=== PATIENT | female | born 1950 | race Caucasian/White ===

== ENCOUNTER 2016-12-26 09:35 | Emergency (ER) | payer OTHER ==
[2016-12-26 09:43] VITALS: RESP 18
[2016-12-26] MEDS ORDERED: NS 1,000 ML IV ONE (09:54)
--- NOTE | 2016-12-26 09:56 | EDPHY ---
H & P Stated Complaint: cough, sob, fatigue, h/a, bilat ear pain x 1 week HPI/ROS: Chief complaint: Cold symptoms History of present illness: This is a 66-year-old female who presents to the emergency department for cold symptoms. She reports she has been sick for the last week. She reports symptoms initially began with a sore throat which has resolved. She now reports intermittent fevers, ear fullness and primarily chest congestion and cough. She states she started to feel weak. She denies precipitating factors. She denies alleviating factors. She denies other associated signs or symptoms. Review of systems: A 10 point review of systems was obtained and other than described above was negative - Personal History Current Tetanus/Diphtheria Vaccine: Unsure Current Tetanus Diphtheria and Acellular Pertussis (TDAP): Unsure - Medical/Surgical History Hx Asthma: No Hx Chronic Respiratory Disease: No Hx Diabetes: No Hx Cardiac Disease: No Hx Renal Disease: No Hx Cirrhosis: No Hx Alcoholism: No Hx HIV/AIDS: No Hx Splenectomy or Spleen Trauma: No Other PMH: hypothyroid - Social History Smoking Status: Never smoked - Physical Exam Exam: General Appearance: Alert, nontoxic. Eyes: Pupils equal and round no pallor or injection. ENT, Mouth: Tympanic membranes, external auditory canals, external ears and surrounding soft tissue including over the mastoids are unremarkable. Nasopharynx is not injected. There is no rhinorrhea. Oropharynx is not injected. There is no edema. There is no exudate. There is no asymmetry. The uvula is midline. No elevation of the tongue. There is no hoarseness, no drooling, no trismus, no stridor. Respiratory: Patient is talking in full sentences. No use of accessary muscles or evidence of respiratory distress. Some rales and rhonchi in the right lower lung field. Otherwise clear to auscultation. Cardiovascular: Regular rate and rhythm. Gastrointestinal: Abdomen is soft and nontender, no masses, bowel sounds normal. Neurological: Alert and oriented x4. No meningismus. Skin: Warm and dry, no rashes. Musculoskeletal: Neck is supple nontender. Extremities are symmetrical, full range of motion. Psychiatric: Patient is oriented X 3, there is no agitation. Constitutional: Initial Vital Signs Temperature (C) 36.6 C 12/26/16 09:40 Heart Rate 92 12/26/16 09:40 Respiratory Rate 18 12/26/16 09:40 Blood Pressure 129/103 H 12/26/16 09:40 O2 Sat (%) 90 L 12/26/16 09:40 O2 Delivery Mode Room Air Allergies/Adverse Reactions: codeine Allergy (Verified 12/26/16 09:38) morphine Allergy (Verified 12/26/16 09:39) tramadol Allergy (Verified 12/26/16 09:39) Home Medications: Medication Instructions Recorded Doxycycline Hyclate [Vibramycin 100 mg PO BID 10 Days 12/26/16 100 MG (*)] Synthroid 12/26/16 Medical Decision Making - Diagnostics Imaging: Chest x-ray consistent with right lower lobe pneumonia ED Course/Re-evaluation: Patient discussed with my primary supervising physician Dr. Angie Mishra. Patient presents to the emergency department for persistent cold symptoms. Ultimately she appears to be suffering from a right lower lobe pneumonia. Her vital signs are stable. However she is unwell appearing. I have offered her admission to the hospital, she has declined. She is discharged home after being started on doxycycline in the emergency department. Home care is discussed. She is asked to follow up with a primary care doctor on Wednesday for recheck and referral information is provided. Strict return precautions are given. Patient voiced understanding and agreement with plan. Differential Diagnosis: Included but not limited to pneumonia, bronchitis, influenza, empyema - Data Points Laboratory Results: Laboratory Results 12/26/16 10:05 12/26/16 10:05 12/26/16 12/26/16 12/26/16 10:10 10:05 10:05 WBC 13.22 10^3/uL H 10^3/uL (3.80-9.50) RBC 5.00 10^6/uL 10^6/uL (4.18-5.33) Hgb 15.1 g/dL g/dL (12.6-16.3) Hct 42.2 % % (38.0-47.0) MCV 84.4 fL fL (81.5-99.8) MCH 30.2 pg pg (27.9-34.1) MCHC 35.8 g/dL g/dL (32.4-36.7) RDW 13.0 % % (11.5-15.2) Plt Count 334 10^3/uL 10^3/uL (150-400) MPV 10.2 fL fL (8.7-11.7) Neut % (Auto) 79.1 % H % (39.3-74.2) Lymph % (Auto) 8.5 % L % (15.0-45.0) [place] % (Auto) 11.6 % % (4.5-13.0) Eos % (Auto) 0.1 % L % (0.6-7.6) Baso % (Auto) 0.2 % L % (0.3-1.7) Nucleat RBC Rel Count 0.0 % % (0.0-0.2) Absolute Neuts (auto) 10.45 10^3/uL H 10^3/uL (1.70-6.50) Absolute Lymphs (auto) 1.12 10^3/uL 10^3/uL (1.00-3.00) Absolute Monos (auto) 1.54 10^3/uL H 10^3/uL (0.30-0.80) Absolute Eos (auto) 0.01 10^3/uL L 10^3/uL (0.03-0.40) Absolute Basos (auto) 0.03 10^3/uL 10^3/uL (0.02-0.10) Absolute Nucleated RBC 0.00 10^3/uL 10^3/uL (0-0.01) Immature Gran % 0.5 % % (0.0-1.1) Immature Gran # 0.07 10^3/uL 10^3/uL (0.00-0.10) Sodium 134 mEq/L mEq/L (134-144) Potassium 3.8 mEq/L mEq/L (3.5-5.2) Chloride 99 mEq/L mEq/L (97-110) Carbon Dioxide 22 mEq/l mEq/l (22-31) Anion Gap 13 mEq/L mEq/L (8-16) BUN 13 mg/dL mg/dL (7-23) Creatinine 0.5 mg/dL L mg/dL (0.6-1.0) Estimated GFR > 60 Glucose 114 mg/dL H mg/dL (70-100) Calcium 9.0 mg/dL mg/dL (8.5-10.4) Influenza Typ A,B (DFA) NEGATIVE FOR FLU (NEGATIVE) Medications Given: Discontinued Medications Sodium Chloride (Ns) 1,000 mls @ 0 mls/hr IV ONCE ONE PRN Reason: Wide Open Stop: 12/26/16 09:55 Last Admin: 12/26/16 10:00 Dose: 1,000 mls Departure - Departure Disposition: Home, Routine, Self-Care Clinical Impression: Pneumonia Qualifiers: Pneumonia type: due to unspecified organism Laterality: right Lung location: lower lobe of lung Qualified Code(s): J18.1 - Lobar pneumonia, unspecified organism Condition: Good Instructions: Pneumonia (ED) Additional Instructions: Follow-up with the primary care doctor on Wednesday for recheck Take all antibiotics as prescribed until finished even feeling better You can take probiotics with the antibiotics You were offered admission to the hospital today, you declined If symptoms worsen or new symptoms develop return to the emergency department for recheck Referrals: Arya Garcia MD [Medical Doctor] - As per Instructions Prescriptions: Doxycycline Hyclate [Vibramycin 100 MG (*)] 100 mg PO BID 10 Days
[2016-12-26 10:13] LABS: % IMMATURE GRANULYOCYTES 0.5 % (0.0-1.1); ABSOLUTE IMMATURE GRANULOCYTES 0.07 10^3/uL (0.00-0.10); ADD DIFF? NO; ADD MORPH? NO; ADD SCAN? NO; ATYPICAL LYMPHOCYTE FLAG 20 (0-99); FRAGMENT RBC FLAG 0 (0-99); HEMATOCRIT 42.2 % (38.0-47.0); HEMOGLOBIN 15.1 g/dL (12.6-16.3); LEFT SHIFT FLG 0 (0-99); LIPEMIA HEMOLYSIS FLAG 90 (0-99); MEAN CELL HEMOGLOBIN 30.2 pg (27.9-34.1); MEAN CELL HEMOGLOBIN CONCENTR. 35.8 g/dL (32.4-36.7); MEAN CELL VOLUME 84.4 fL (81.5-99.8); MEAN PLATELET VOLUME 10.2 fL (8.7-11.7); PLATELET CLUMPS FLAG 0 (0-99); PLATELET COUNT 334 10^3/uL (150-400)
[2016-12-26 10:26] LABS: ANION GAP 13 mEq/L (8-16); CARBON DIOXIDE 22 mEq/l (22-31); CHLORIDE 99 mEq/L (97-110); CREATININE 0.5 mg/dL (0.6-1.0); GLOMERULAR FILTRATION RATE > 60; GLUCOSE 114 mg/dL (70-100); POTASSIUM 3.8 mEq/L (3.5-5.2); SODIUM 134 mEq/L (134-144)
[2016-12-26] MEDS ORDERED: DOXYCYCLINE HYCLATE 100 MG CAP/TAB PO ONE (10:59)
[2016-12-26 11:25] VITALS: BP 138/75; PULSE 85; TEMP 98.6; O2SAT 96
== END 2016-12-26 11:19 | disposition home or self-care (01) ==
DX: J18.1 Lobar pneumonia, unspecified organism (principal)

== ENCOUNTER 2016-12-27 08:30 | Observation (INO) | payer OTHER ==
[2016-12-27] MEDS ORDERED: NS 1,000 ML IV ONE ×2 (08:53→09:16)
--- NOTE | 2016-12-27 08:58 | EDPHY ---
H & P Time Seen by Provider: 12/27/16 08:54 HPI/ROS: CHIEF COMPLAINT: Vomiting HISTORY OF PRESENT ILLNESS: Patient was in the emergency department yesterday and diagnosed with pneumonia and was placed on oral doxycycline. At the time she presented with a week of coughing and aching. Her x-ray showed right lower lung consolidation. She vomited after the 1st dose and after the 3rd dose of oral antibiotic and continues to have nausea. Symptoms associated with diarrhea which this morning was bloody with mucus. She still has associated chills but does not have abdominal pain. She feels a little bit stronger but still feels very weak. Still little bit short of breath. REVIEW OF SYSTEMS: Eye: no change in vision ENT: no sore throat, does have right upper posterior molar soreness a tooth problem which she has had for couple weeks Cardiac: no chest pain or syncope Pulmonary: HPI Abdomen: HPI Musculoskeletal: no back pain Skin: no rash Neuro: no headache Constitutional: Does continue to have chills : no urinary symptoms A comprehensive 10 point review of systems is otherwise negative aside from elements mentioned in the history of present illness. PAST MEDICAL HISTORY: Includes hypothyroid, hysterectomy, thyroidectomy. Social history: Nonsmoker General Appearance: Alert and conversant, cooperative. Eyes: No scleral icterus. ENT, Mouth: Slightly dry mucous membranes, no trismus Respiratory: Normal respiratory effort, decreased breath sounds at the bases especially at the right. Cardiovascular: Regular rate and rhythm. Gastrointestinal: Abdomen is soft and non tender. Neurological: Alert and oriented x3. Normally conversant. Face symmetric, normal movement and sensation in all extremities. Skin: Warm and dry, no rashes. Musculoskeletal: No peripheral edema and no joint swelling. Psychiatric: Not agitated. Emergency Department course/MDM: Patient presents with failure of outpatient treatment of her pneumonia with nausea and vomiting. Plan for admission to the hospital for IV antibiotics. She does not have SIRS criteria on arrival. Ceftriaxone 1 g and azithromycin 500 mg IV. Will test stool for Clostridium difficile. Smoking Status: Never smoked Constitutional: Initial Vital Signs Temperature (C) 36.6 C 12/27/16 08:32 Heart Rate 80 12/27/16 08:32 Respiratory Rate 14 12/27/16 08:32 Blood Pressure 148/92 H 12/27/16 08:32 O2 Sat (%) 92 12/27/16 08:32 O2 Delivery Mode Room Air Allergies/Adverse Reactions: codeine Allergy (Verified 12/26/16 09:38) morphine Allergy (Verified 12/26/16 09:39) tramadol Allergy (Verified 12/26/16 09:39) Home Medications: Medication Instructions Recorded Levothyroxine [Synthroid 75 mcg 75 mcg PO DAILY06 12/26/16 (*)] Ibuprofen [Motrin (*)] 400 mg PO DAILY PRN 12/27/16 Medical Decision Making - Diagnostics Imaging: Chest x-ray interpreted by myself shows right lower lung infiltrate. Differential Diagnosis: Differential diagnosis considered for nausea and vomiting including but not limited to gastroenteritis, gastritis, appendicitis, and medication side effect. Consult/Admit Bed Type: [place] [id number] for Candido Darren - Data Points Laboratory Results: Laboratory Results 12/27/16 08:40 12/27/16 08:40 12/27/16 12/27/16 12/27/16 08:50 08:40 08:40 WBC 11.54 10^3/uL H 10^3/uL (3.80-9.50) RBC 4.92 10^6/uL 10^6/uL (4.18-5.33) Hgb 14.9 g/dL g/dL (12.6-16.3) Hct 42.4 % % (38.0-47.0) MCV 86.2 fL fL (81.5-99.8) MCH 30.3 pg pg (27.9-34.1) MCHC 35.1 g/dL g/dL (32.4-36.7) RDW 13.1 % % (11.5-15.2) Plt Count 406 10^3/uL H D 10^3/uL (150-400) MPV 10.2 fL fL (8.7-11.7) Neut % (Auto) 83.1 % H % (39.3-74.2) Lymph % (Auto) 7.0 % L % (15.0-45.0) [place] % (Auto) 8.7 % % (4.5-13.0) Eos % (Auto) 0.1 % L % (0.6-7.6) Baso % (Auto) 0.3 % % (0.3-1.7) Nucleat RBC Rel Count 0.0 % % (0.0-0.2) Absolute Neuts (auto) 9.59 10^3/uL H 10^3/uL (1.70-6.50) Absolute Lymphs (auto) 0.81 10^3/uL L 10^3/uL (1.00-3.00) Absolute Monos (auto) 1.00 10^3/uL H 10^3/uL (0.30-0.80) Absolute Eos (auto) 0.01 10^3/uL L 10^3/uL (0.03-0.40) Absolute Basos (auto) 0.04 10^3/uL 10^3/uL (0.02-0.10) Absolute Nucleated RBC 0.00 10^3/uL 10^3/uL (0-0.01) Immature Gran % 0.8 % % (0.0-1.1) Immature Gran # 0.09 10^3/uL 10^3/uL (0.00-0.10) PT 14.6 SEC SEC (12.0-15.0) INR 1.15 (0.83-1.16) APTT 29.4 SEC SEC (23.0-38.0) VBG Lactic Acid Sodium 139 mEq/L mEq/L (134-144) Potassium 3.8 mEq/L mEq/L (3.5-5.2) Chloride 102 mEq/L mEq/L (97-110) Carbon Dioxide 26 mEq/l mEq/l (22-31) Anion Gap 11 mEq/L mEq/L (8-16) BUN 13 mg/dL mg/dL (7-23) Creatinine 0.5 mg/dL L mg/dL (0.6-1.0) Estimated GFR > 60 Glucose 123 mg/dL H mg/dL (70-100) Calcium 9.4 mg/dL mg/dL (8.5-10.4) Total Bilirubin 1.0 mg/dL mg/dL (0.1-1.4) 12/27/16 08:40 WBC RBC Hgb Hct MCV MCH MCHC RDW Plt Count MPV Neut % (Auto) Lymph % (Auto) [place] % (Auto) Eos % (Auto) Baso % (Auto) Nucleat RBC Rel Count Absolute Neuts (auto) Absolute Lymphs (auto) Absolute Monos (auto) Absolute Eos (auto) Absolute Basos (auto) Absolute Nucleated RBC Immature Gran % Immature Gran # PT INR APTT VBG Lactic Acid 1.7 mmol/L mmol/L (0.7-2.1) Sodium Potassium Chloride Carbon Dioxide Anion Gap BUN Creatinine Estimated GFR Glucose Calcium Total Bilirubin Medications Given: Discontinued Medications Sodium Chloride (Ns) 1,000 mls @ 0 mls/hr IV ONCE ONE PRN Reason: Wide Open Stop: 12/27/16 08:54 Last Admin: 12/27/16 08:54 Dose: 1,000 mls Azithromycin 500 mg/ Dextrose 255 mls @ 255 mls/hr IV EDNOW ONE PRN Reason: Protocol Stop: 12/27/16 10:15 Last Admin: 12/27/16 10:28 Dose: 255 mls Ceftriaxone Sodium/Dextrose (Rocephin 1 Gm (Premix)) 50 mls @ 100 mls/hr IV EDNOW ONE PRN Reason: Protocol Stop: 12/27/16 09:45 Last Admin: 12/27/16 09:35 Dose: 50 mls Sodium Chloride (Ns) 1,000 mls @ 0 mls/hr IV ONCE ONE PRN Reason: Wide Open Stop: 12/27/16 09:17 Last Admin: 12/27/16 09:42 Dose: 1,000 mls Departure - Departure Disposition: [facility] Inpatient Acute Clinical Impression: Nausea & vomiting Qualifiers: Vomiting type: unspecified Vomiting Intractability: non-intractable Qualified Code(s): R11.2 - Nausea with vomiting, unspecified Pneumonia Qualifiers: Pneumonia type: due to unspecified organism Laterality: right Lung location: lower lobe of lung Qualified Code(s): J18.1 - Lobar pneumonia, unspecified organism Condition: Good
[2016-12-27] MEDS ORDERED: AZITHROMYCIN IV 500 MG in D5W 250 ML IV ONE (09:16)
[2016-12-27 09:23] LABS: % IMMATURE GRANULYOCYTES 0.8 % (0.0-1.1); ABSOLUTE IMMATURE GRANULOCYTES 0.09 10^3/uL (0.00-0.10); ADD DIFF? NO; ADD MORPH? NO; ADD SCAN? NO; ATYPICAL LYMPHOCYTE FLAG 20 (0-99); FRAGMENT RBC FLAG 0 (0-99); HEMATOCRIT 42.4 % (38.0-47.0); HEMOGLOBIN 14.9 g/dL (12.6-16.3); LEFT SHIFT FLG 0 (0-99); LIPEMIA HEMOLYSIS FLAG 90 (0-99); MEAN CELL HEMOGLOBIN 30.3 pg (27.9-34.1); MEAN CELL HEMOGLOBIN CONCENTR. 35.1 g/dL (32.4-36.7); MEAN CELL VOLUME 86.2 fL (81.5-99.8); MEAN PLATELET VOLUME 10.2 fL (8.7-11.7); PLATELET CLUMPS FLAG 0 (0-99); PLATELET COUNT 406 10^3/uL (150-400); RED BLOOD CELL COUNT 4.92 10^6/uL (4.18-5.33); RED CELL DISTRIBUTION WIDTH 13.1 % (11.5-15.2)
[2016-12-27 09:29] LABS: APTT 29.4 SEC (23.0-38.0); INR 1.15 (0.83-1.16); PROTIME(PATIENT) 14.6 SEC (12.0-15.0)
[2016-12-27 09:30] LABS: ANION GAP 11 mEq/L (8-16); CALCIUM 9.4 mg/dL (8.5-10.4); CARBON DIOXIDE 26 mEq/l (22-31); CHLORIDE 102 mEq/L (97-110); CREATININE 0.5 mg/dL (0.6-1.0); GLOMERULAR FILTRATION RATE > 60; GLUCOSE 123 mg/dL (70-100); POTASSIUM 3.8 mEq/L (3.5-5.2); SODIUM 139 mEq/L (134-144)
[2016-12-27] MEDS ORDERED: ONDANSETRON DISINTEGRATING 4 MG TAB PO PRN (12:27)
[2016-12-27] MEDS ORDERED: ONDANSETRON 4 MG/2 ML VIAL IVP PRN (12:27)
[2016-12-27] MEDS ORDERED: ACETAMINOPHEN 325 MG TAB PO PRN (12:27)
[2016-12-27] MEDS ORDERED: IBUPROFEN 200 MG TAB PO PRN (12:29)
--- NOTE | 2016-12-27 13:05 | GHP ---
DATE OF ADMISSION: 12/27/2016 HISTORY OF PRESENT ILLNESS: The patient is a 66-year-old female with minimal past medical history, who has been sick for a couple of weeks. She was seen in the emergency department yesterday, and diagnosed with a right lower lobe pneumonia by chest x-ray, sent home on doxycycline. She had vomiting on the first and third doses, and reported again today. She also had an episode of abdominal pain with diarrhea, with some blood in it. She said it was not a particularly large amount of blood. There has been no melena, no hematemesis, no coffee-grounds emesis. She does not think she has had a hemorrhoid, although she has had them in the past. She is not short of breath, tachycardic , confused or dizzy. She is a nonsmoker. REVIEW OF SYSTEMS: Complete 10-point review of systems conducted, negative except as noted in the HPI. PAST MEDICAL HISTORY: 1. Hypothyroidism. 2. Status post hysterectomy. 3. Status post thyroidectomy. SOCIAL HISTORY: Nonsmoker. Minimal alcohol. Lives in [place]. FAMILY HISTORY: Reviewed and unremarkable. PHYSICAL EXAMINATION: VITAL SIGNS: Temperature 36.6, blood pressure 148/92, pulse 80, breathing 14 times a minute, 92% on room air. GENERAL: No acute distress. HEENT: Sclerae anicteric. Oropharynx clear. Mucous membranes are moist. NECK: Supple without lymphadenopathy or JVD. LUNGS: Show crackles at the right base. Good air movement. No wheeze. HEART: S1, S2 without murmurs. ABDOMEN: Soft, nontender, nondistended. LOWER EXTREMITIES: Without edema. Calves are nontender. SKIN: Without rash. NEUROLOGIC: Exam is nonfocal. LABORATORY DATA: Chem-7 normal, except for a glucose of 123. White count 11.5 , hematocrit 42, platelets are 406,000. INR is 1.15. Venous lactate is 1.7. Chest x-ray, interpreted by me, shows right lower lobe pneumonia, it is about the same as yesterday's, also interpreted by me. I discussed the case Dr. Demetrius Ramos of the emergency department. ASSESSMENT AND PLAN: This is a 66-year-old female, with community-acquired pneumonia and failure of outpatient therapy secondary to intolerance. 1. Community-acquired pneumonia. Start ceftriaxone, azithromycin. Aspiration considered, and thought not likely. 2. Question sepsis. She does not have sepsis. 3. Hyperglycemia; this is a nonfasting sample. We will follow. 4. Hypothyroidism. Continue levothyroxine. 5. Prophylaxis. Pharmacologic prophylaxis is indicated if in the hospital longer than 24 hours, which I doubt she will be. 6. Disposition. Observation status. 7. blood in stool- repeat hct in AM /[id number]/MODL MTDD
[2016-12-28] MEDS ORDERED: LEVOTHYROXINE 75 MCG TAB PO SCH (06:00)
[2016-12-28 06:10] LABS: % IMMATURE GRANULYOCYTES 0.8 % (0.0-1.1); ABSOLUTE IMMATURE GRANULOCYTES 0.07 10^3/uL (0.00-0.10); ADD DIFF? NO; ADD MORPH? NO; ADD SCAN? NO; ATYPICAL LYMPHOCYTE FLAG 40 (0-99); FRAGMENT RBC FLAG 0 (0-99); HEMATOCRIT 39.1 % (38.0-47.0); HEMOGLOBIN 13.7 g/dL (12.6-16.3); LEFT SHIFT FLG 0 (0-99); LIPEMIA HEMOLYSIS FLAG 90 (0-99); MEAN CELL HEMOGLOBIN 29.9 pg (27.9-34.1); MEAN CELL VOLUME 85.4 fL (81.5-99.8); MEAN PLATELET VOLUME 9.9 fL (8.7-11.7); PLATELET CLUMPS FLAG 0 (0-99); PLATELET COUNT 433 10^3/uL (150-400); RED BLOOD CELL COUNT 4.58 10^6/uL (4.18-5.33); RED CELL DISTRIBUTION WIDTH 13.1 % (11.5-15.2)
[2016-12-28 06:26] LABS: ANION GAP 9 mEq/L (8-16); CALCIUM 9.1 mg/dL (8.5-10.4); CARBON DIOXIDE 25 mEq/l (22-31); CHLORIDE 104 mEq/L (97-110); CREATININE 0.5 mg/dL (0.6-1.0); GLOMERULAR FILTRATION RATE > 60; GLUCOSE 94 mg/dL (70-100); POTASSIUM 3.9 mEq/L (3.5-5.2); SODIUM 138 mEq/L (134-144)
[2016-12-28 08:35] VITALS: RESP 18
[2016-12-28] MEDS ORDERED: AZITHROMYCIN 250 MG TAB PO SCH (09:00)
[2016-12-28] MEDS ORDERED: cefTRIAXone 1 GM in D5W 50 ML IV SCH (09:00)
--- NOTE | 2016-12-28 09:37 | PDDCSUM ---
Discharge Summary Discharge Summary: Dates of service 12/27-12/28/16 Discharge dx: # RLL PNA # nausea/vomiting # fatigue and malaise # leukocytosis Procedures/consultations: none HPI: 66 yo F with no significant PMH admitted with RLL PNA after failing OP therapy due to inability to tolerate pills Hospital course by problem: # RLL PNA: no isolated pathogen but suspect s.pneumo versus respiratory virus vs h.influenza. Treated with ctx/azithro overnight and will dc home on levofloxacin. Has not had respiratory insufficiency or sepsis. Appropriate for OP mgmt # n/v: in the setting of pna and significant sputum production as well as taking pills on an empty stomach. Has largely resolved, will give short rx for zofran # fatigue and malaise: in setting of pna, is ambulating and do feel she is safe for dc home # leukocytosis: in setting of pna, resolved Dispo: dc home, f/u with PCP Meds: see EHR, include new rx for levofloxacin to compete 7 days total as well as zofran > 35 minutes spent in dc of this patient, more than half in face to face counseling of patient and her regarding f/u care plans and return precautions
[2016-12-28 10:06] VITALS: BP 138/86; PULSE 73; TEMP 98.2; O2SAT 93
== END 2016-12-28 10:06 | disposition home or self-care (01) ==
LOC: F1N 09:53
PROVIDERS: ADMIT Internal Medicine; ATTEND Internal Medicine
DX: J18.8 Other pneumonia, unspecified organism (principal); E89.0 Postprocedural hypothyroidism; R73.9 Hyperglycemia, unspecified
CPT/HCPCS: 71020; G0378; 96365; J0456; J0696